=== PATIENT | female | born 1970 | race Caucasian/White ===

== ENCOUNTER 2018-09-14 12:00 | Outpatient (CLI) | payer BC ==
[2018-09-14 13:44] LABS: Hemoglobin 13.3 g/dL (12.0-16.0); Mean Corpuscular HGB CONC 33.3 g/dL (32.0-36.0); Mean Corpuscular Hemoglobin 28.7 pg (27.0-31.0); Mean Corpuscular Volume 86.1 fL (78.0-98.0); Mean Platelet Volume 7.5 fL (7.4-10.4); Platelet Count 353 thou/uL (130-400); RBC Distribution Width 12.3 % (11.5-14.5); Red Blood Cell (RBC) Count 4.65 mill/uL (4.20-5.40); White Blood Cell (WBC) Count 7.8 thou/uL (4.8-10.8)
[2018-09-14 14:03] LABS: BHCG - Serum Negative (NEGATIVE); Pregs Control Background? CLEAR/WHITE (CLR/WHITE); Pregs Control Bar Appear? YES (CONTROL BAR)
== END 2018-09-14 12:01 | disposition home or self-care (01) ==
LOC: LABBT 12:00
PROVIDERS: ATTEND Obstetrics & Gynecology
DX: Z01.812 Encounter for preprocedural laboratory examination (principal); N83.201 Unspecified ovarian cyst, right side
CPT/HCPCS: 84703; 85027; 86850; 86900; 86901

== ENCOUNTER 2018-09-19 12:13 | Day surgery (SDC) | payer BC ==
[2018-09-14 12:19] VITALS: BMI 29.4
--- NOTE | 2018-09-18 20:26 | HP ---
HISTORY OF PRESENT ILLNESS: Ms. Driscoll is a 48-year-old white female, who was noted on her wellness visit back in July to have a pelvic mass on pelvic examination. She underwent ultrasound evaluation during that day showing her to have a 9-cm right ovarian cyst with one single septation. She had a followup ultrasound 4 weeks later for a possible resolution with persistence of the 9 to 10-cm simple ovarian cyst. She remains asymptomatic. She otherwise has normal menstrual cycles and no other gynecologic or abdominal complaints. PAST MEDICAL HISTORY: Migraine headaches. PAST SURGICAL HISTORY: Oral surgery. FAMILY HISTORY: Negative for any ovarian cancer. Her mother had history of breast cancer. SOCIAL HISTORY: She is a nonsmoker. No excessive alcohol use. ALLERGIES: SHE HAS NO KNOWN DRUG ALLERGIES. CURRENT MEDICATIONS: Sumatriptan 25 mg for onset of migraine. PHYSICAL EXAMINATION: GENERAL: The patient is a well-developed and well-nourished white female, in no acute distress. VITAL SIGNS: Her height is 5 feet 2 inches and weight is 165 with a BMI of 30. HEENT: Within normal limits. CHEST: Clear to auscultation. HEART: Regular rate and rhythm. S1 and S2 heart sounds. No murmurs, rubs, or gallops. ABDOMEN: Soft, nontender, nondistended with no palpable masses. PELVIC: Vulva and vagina had no lesions. Cervix had no lesion. Previous Pap smear in 2016 with HPV was negative. She has a palpable pelvic mass approximately 12 to 14 weeks' size with ultrasound confirmation of 9 to 10-cm simple ovarian cyst with one single thin septation noted. The uterus was normal otherwise and her left ovary was normal. ASSESSMENT AND PLAN: This is a 48-year-old white female with persistent 9 to 10-cm simple ovarian cyst. Plan for laparoscopic right salpingo-oophorectomy. Risks and benefits of the procedure had been discussed in detail. She is set for surgery on 09/19/2018. Job ID: [id number]
[2018-09-19] MEDS ORDERED: CEFAZOLIN 2 GM/50 ML BAG ONE (13:03)
[2018-09-19] MEDS ORDERED: Famotidine/PF 20 mg/2ml Vial ONE (13:04)
[2018-09-19] MEDS ORDERED: Gabapentin 300 MG CAP ONE (13:04)
[2018-09-19] MEDS ORDERED: CeleCOXIB 100 MG CAP ONE (13:05)
[2018-09-19] MEDS ORDERED: Bupivacaine HCl 0.5%/Epinephrine 1:200,000/PF 30 ml Vial ONE (13:26)
[2018-09-19] MEDS ORDERED: Midazolam HCl 2 mg/2 ml Vial ONE (14:36)
[2018-09-19] MEDS ORDERED: Fentanyl 250 MCG/5 ML VIAL ONE (14:36)
[2018-09-19] MEDS ORDERED: Ondansetron PF 4 MG/2 ML Vial ONE (16:43)
[2018-09-19] MEDS ORDERED: Dexamethasone 20 MG/5 ML VIAL ONE (16:43)
[2018-09-19] MEDS ORDERED: PROPOFOL 200 MG/20 ML VIAL ONE (16:43)
[2018-09-19] MEDS ORDERED: Glycopyrrolate 0.2 MG/ML 5 ML SYRINGE ONE (16:43)
[2018-09-19] MEDS ORDERED: Lidocaine 1% PF 5 ML VIAL ONE (16:43)
--- NOTE | 2018-09-20 17:52 | OP ---
DATE OF PROCEDURE: 09/19/2018 PREOPERATIVE DIAGNOSES: A 48-year-old white female, G1, P0, A1 with a 9 to 10 cm right ovarian cyst persistent. POSTOPERATIVE DIAGNOSIS: Right chocolate ovarian cyst, suggestive of endometrioma. PROCEDURE PERFORMED: Laparoscopic right salpingo-oophorectomy. OPERATIONAL RISK MANAGER SURGEON: Jessie Juarez MD ANESTHESIA: General endotracheal. ESTIMATED BLOOD LOSS: Less than 25 mL. FINDINGS: 1. Large right cystic ovarian mass with adhesions to the appendices epiploicae of the rectum and right pelvic side wall. Inadvertent rupture with copious amount of chocolate cystic fluid consistent with hemorrhagic material. Approximately 400 mL was suctioned out. 2. Normal-appearing appendix, peritoneal surfaces, and liver. 3. Left ovary with some pelvic adhesions on the pelvic sidewall, otherwise no obvious endometrioma noted. 4. Posterior cul-de-sac with peritoneal window suggestive of deep-seated prior endometriosis activity. 5. Normal-appearing uterus with adhesions of the right adnexa to its posterior side, status post adhesiolysis. PATHOLOGY: Right ovarian cyst, cyst wall, ovary, and tube. COMPLICATIONS: None. DISPOSITION: To recovery room and then plan for discharge home from Day Stay. DESCRIPTION OF PROCEDURE: The patient previously received informed consent in regard to surgery. She was taken back to the operating room, where she received general endotracheal anesthetic agent without complications. She was placed in dorsal lithotomy position. A Archibald catheter was placed. A sidearm speculum was placed in the vagina. Cervix was noted to be somewhat stenotic and unable to pass the Hulka uterine manipulator. Due to concern to not have any uterine perforation, a tenaculum with sponge stick was then placed for manipulation of the uterus. Attention was then turned to the abdomen, where perspective trocar sites were infiltrated with 0.5% Marcaine with epinephrine. A 5-mm supraumbilical incision was made. A Veress needle was entered into the peritoneal cavity. The patient's pressure was less than 5 mm. The abdomen was insufflated to the patient's pressure of 15 with approximately 4-1/2 L of carbon dioxide gas. Veress needle was then removed, and a 5-mm trocar was placed, and a 5-mm laparoscope was introduced through the trocar sleeve. Previously mentioned findings were noted. Additional bilateral lower quadrant 5 mm trocars were placed under laparoscopic guidance. An additional size 12 midline suprapubic trocar was placed under direct visualization. The pelvis was inspected with the previously mentioned findings. An atraumatic grasper was placed on my left port, grasping of the ovarian cyst, and it was noted to be adherent to the rectum. During the attempt to mobilize this, the cyst wall ruptured and copious amounts of chocolate-like cystic fluid drained. This continued to drain, and we suctioned this out with suction skills trainer; then we were able to grasp the capsule of the uterus by my assistant city attorney and by pulling it away from the pelvic wall. We used the LigaSure 5 mm device to transect the right infundibulopelvic ligament. The course of the ureter was noted to be below the transection site. We followed the course of the ureter and it remained out of harm's way during the case, inferior to this where we were retracting the mass from the lateral pelvic side wall medially. We developed this plane and with the LigaSure device, the peritoneal surface was coagulated and transected. Then, we came across and took the right fallopian tube near the uterine ovarian ligament enabling it was quite thick in this area and this allowed us to do a layering technique, coagulation, transection with the LigaSure device, mobilizing the adnexal mass from this region. Then, we transected across the posterior adhesions onto the posterior body of the uterus with the LigaSure device containing hemostasis. With upward and lateral traction, this enabled us to dissect the cystic structure, also appendices epiploicae of the rectum and with blunt dissection, this was released. Once we had released the pelvic adnexal cyst, then we placed a 10-cm tissue bag through the suprapubic port and the specimen was placed in the bag and sealed. We then pulled the bag contents out in piecemeal fashion with Craig and then the bag was released. The needle system was utilized to place a 0 Vicryl suture in the defect of the suprapubic port site and good fascial closure was visualized laparoscopically. Then, we proceeded to copiously irrigate the pelvis. The previously mentioned findings were noted. The hemostasis along the pedicle sites was confirmed. The excess carbon dioxide gas was then released from the abdomen. Trocar sleeves were removed and the trocar sites were closed with 4-0 Monocryl suture with Dermabond. The tenaculum and sponge stick were removed. Hemostasis was confirmed. The patient was awakened from anesthesia and transferred to recovery room in stable condition. Job ID: [id number]
== END 2018-09-19 19:45 | disposition home or self-care (01) ==
LOC: SDC 12:13
PROVIDERS: ATTEND Obstetrics & Gynecology
PROC: 0UT04ZZ Resection of Right Ovary, Percutaneous Endoscopic Approach (ICD-10-PCS; principal; 2018-09-19)
PROC: 0UT54ZZ Resection of Right Fallopian Tube, Percutaneous Endoscopic Approach (ICD-10-PCS; principal; 2018-09-19)
DX: N83.01 Follicular cyst of right ovary (principal); N83.8 Other noninflammatory disorders of ovary, fallopian tube and broad ligament; N73.6 Female pelvic peritoneal adhesions (postinfective); G43.909 Migraine, unspecified, not intractable, without status migrainosus; Z79.899 Other long term (current) drug therapy; Z88.1 Allergy status to other antibiotic agents; Z88.2 Allergy status to sulfonamides
CPT/HCPCS: 88305; J0670; J1100; J2001; J2250; J2405; J2704; J3010; S0028